=== PATIENT | female | born 1960 | race Caucasian/White ===

== ENCOUNTER 2020-08-11 12:17 | Outpatient (REF) | payer OTHER, SELFPAY | END 2020-08-11 12:18 | disposition home or self-care (01) | LOC: HO.HMGCLDS 12:17 | PROVIDERS: Visit Provider Internal Medicine | DX: Z20.828 Contact with and (suspected) exposure to other viral communicable diseases (principal) | CPT/HCPCS: C9803; U0003 ==

== ENCOUNTER 2021-09-03 11:21 | Outpatient (REF) | payer OTHER, SELFPAY ==
--- NOTE | ~2021-09-03 | XR_ITS ---
EXAMINATION: XR SHOULDER, LEFT CLINICAL INFORMATION: Pain. COMPARISON: None TECHNIQUE: AP external rotation, Grashey, scapular Y, and axillary views of the left shoulder. FINDINGS: The bones and soft tissues are normal. No fracture. Glenohumeral and acromioclavicular alignment is anatomic with normal joint space. No abnormal soft tissue calcifications. XR/XR shoulder LT min 2V IMPRESSION: Unremarkable left shoulder.
== END 2021-09-03 11:22 | disposition home or self-care (01) ==
LOC: HO.HMGCX 11:21
PROVIDERS: PCP Internal Medicine; Visit Provider Internal Medicine
DX: M25.512 Pain in left shoulder (principal)
CPT/HCPCS: 73030

== ENCOUNTER 2021-09-05 09:47 | Outpatient (REF) | payer OTHER, SELFPAY ==
[2021-09-05 11:36] LABS: Appearance Urine CLEAR; Color Urine YELLOW; Glucose Urine UA NEG (NEG); Leukocyte Esterase Urine TRACE (NEG); Nitrite Urine NEG (NEG); PH 5.5 (5.0-8.0); Specific Gravity - Urine >= 1.030 (1.005-1.025); Urine Blood NEG (NEG); Urine Ketones NEG (NEG); Urine Protein NEG (NEG-TRACE)
[2021-09-05 11:43] LABS: Hematocrit 41.2 % (37.0-47.0); Hemoglobin 13.7 g/dl (12.0-16.0); Mean Corpuscular HGB Conc 33.3 g/dl (31.0-35.0); Mean Corpuscular Hemoglobin 30.6 pg (27.0-33.0); Mean Corpuscular Volume 92.2 fL (80.0-98.0); Mean Platelet Volume 10.3 fL (9.4-12.3); Platelet Count 287 X10*3/uL (160-400); Red Blood Count 4.47 X10*6/uL (4.20-5.50); Red Cell Distribution Width 12.9 % (11.0-16.0); White Blood Count 5.6 X10*3/uL (4.8-10.8)
[2021-09-05 11:53] LABS: B Type Natriuretic Peptide 11 pg/mL (<100)
[2021-09-05 12:12] LABS: Alanine Aminotransferase 27 U/L (0-31); Albumin Level 4.2 g/dL (3.5-5.0); Alkaline Phosphatase 47 U/L (39-117); Anion Gap 11 (12-20); Aspartate Amino Transferase 26 U/L (5-31); Bilirubin Total 0.6 mg/dL (0.0-1.0); Blood Urea Nitrogen 18 mg/dL (9-16); Calcium 9.6 mg/dL (8.4-10.2); Carbon Dioxide 25 mmol/L (22-29); Chloride 109 mmol/L (96-108); Cholesterol 254 mg/dL; Estimated Glomerular Filt Rate > 60; Glucose Fasting 101 mg/dL (60-99); HDL Cholesterol 63 mg/dL; LDL Cholesterol Calculated 161 mg/dl; Potassium 4.7 mmol/L (3.3-5.1); Sodium 140 mmol/L (135-145); Total Protein 6.8 g/dL (6.5-8.0); Triglycerides 153 mg/dL
[2021-09-05 12:20] LABS: Squamous Epithelial Cell Urine 1+ /LPF
[2021-09-05 12:22] LABS: RBC Urine 0-2 /HPF (0)
== END 2021-09-05 09:48 | disposition home or self-care (01) ==
LOC: HO.HMGCLDS 09:47
PROVIDERS: PCP Internal Medicine; Visit Provider Internal Medicine
DX: Z00.00 Encounter for general adult medical examination without abnormal findings (principal)
CPT/HCPCS: 36415; 80053; 80061; 81001; 83880; 84443; 85027

== ENCOUNTER 2021-09-28 09:00 | Outpatient (RCR) | payer OTHER, SELFPAY ==
--- NOTE | 2021-09-20 10:48 | MHC.PT.EP ---
[facility] [place] Office [place] Office [place] Office [address] [phone] F: [phone] F: [phone] F: [phone] F: [phone] Physical Therapy Plan of Care Date of Evaluation: Date of Surgery: n/a Diagnosis: pain in L shoulder Assessment: Patient is a 61 year old R handed female who presents with s/s consistent with L shoulder pain. She works with daily job demands including office work. Patient past medical history is fairly unremarkable. Current impairments include pain, posture, ROM, strength, activity tolerance and functional mobility. Functional limitations include decreased ability to sleep, lift, carry, push, pull, and swing a golf club. She is going to [place] in 2 weeks. We will establish an optimal HEP by then. Patient is motivated with good rehab potential. Skilled PT will address impairments and functional limitations in order to achieve goals. Frequency and Duration: The patient will be seen 2x/week for 2 weeks Short Term Goals: I with HEP AROM flexion and abd 120 pain free - 2 weeks Initiated band strength with no aggravation of s/s. - 2 weeks Riding Double Goals: Treatment Plan: Modalities to reduce pain, spasms and effusion. Manual therapy to restore motion and function. Therapeutic exercise to improve strength and flexibility. Neuromuscular re-education for posture and balance. Therapeutic activities to return to functional activities of daily living. Electronically signed by: Asa Montanez, PT Please sign and return to therapist. Thank you for your referral.
--- NOTE | 2021-09-28 09:46 | MHC.PT.DC ---
[facility] [place] Office [place] Office [place] Office [address] Beka Guerra [address] [phone] F: [phone] F: [phone] F: [phone] F: [phone] Physical Therapy Discharge Report Diagnosis: pain in L shoulder Date of Surgery: n/a Date of Evaluation: 09/19/21 Date of Discharge: 09/28/21 Treatments to Date: 3 Cancellations to Date: 0 No Shows to Date: 0 Discharge Status: Improved Function Independent with HEP Discharge Summary: She is appropriate for d/c secondary to I with HEP and improved function. She is moving to [place] and will continue with HEP there. Electronically signed by: Lizzette Woodson PT Please sign and return to therapist. Thank you for your referral.
== END 2021-09-28 09:46 | disposition home or self-care (01) ==
LOC: HO.PTCHIC 09:00
PROVIDERS: PCP Internal Medicine; Visit Provider Internal Medicine
DX: M25.512 Pain in left shoulder (principal)
CPT/HCPCS: 97110; 97140; 97161

== ENCOUNTER → 2021-12-14 09:31 | Outpatient (BNVA) | payer OTHER, SELFPAY | PROVIDERS: PCP Internal Medicine; Referring Provider Internal Medicine; Visit Provider Internal Medicine Cardiovascular Disease | DX: R06.02 Shortness of breath (principal); Z86.79 Personal history of other diseases of the circulatory system | CPT/HCPCS: 99202 ==

== ENCOUNTER → 2021-12-17 09:35 | Outpatient (REF) | payer OTHER, SELFPAY ==
--- NOTE | 2021-12-17 11:38 | CA_ITS ---
Acquisition Time: 2021-12-17 10:14:21 Total Exercise Time: 00:09:47 Test Indications: SOB Medications: SEE CHART Protocol: MAGGIE Max HR: 157 BPM 98% of Pred: 160 BPM Max BP: 148/082 mmHG Max Work Load: 11.3 METS Exercise stress test with exercise 9 min 47 sec of Magige protocol, achieving 98% MPHR, 11 METs, with mild sob, no chest discomfort, without arrythmia, with normotensive response to exercise, without EKG changes meeting criteria for ischemia. Test reviewed with Dr Foster. Referred By: Corey Reilly Overread By: ZANE MOSCOSO
== END ==
LOC: HO.CARD 09:35
PROVIDERS: PCP Internal Medicine; Visit Provider Internal Medicine Cardiovascular Disease
DX: R06.02 Shortness of breath (principal)
CPT/HCPCS: 93017

== ENCOUNTER → 2021-12-26 11:36 | Outpatient (REF) | payer OTHER, SELFPAY ==
--- NOTE | 2021-12-26 11:41 | CA_ITS ---
Transthoracic Echocardiogram Patient (Last, First, Middle): Stephenie King G Gender: Female Date of : 1960 Age: 61 Procedure Date: 12/26/2021 Procedure Type: Transthoracic Echocardiogram Location: OP Height: 162.56 cm Weight: 63.5 kg BSA: 1.68 m2 Heart Rate: bpm BP: 110 / 70 mmHg Rn Gyn: MERCEDES Gaston MD: Corey Reilly MD Mineral Engineer: Corey Reilly MD Symptoms: R06.02 - Shortness of breath Study Quality: Fair ECG Rhythm: Sinus Conclusions: - 1. Normal LV systolic function with grade 1 diastolic dysfunction 2. Normal cardiac valvular Doppler 3. Normal RV systolic pressure 4. No gross pericardial effusion Findings Left Ventricle Normal left ventricular size, thickness, and systolic function. The visually estimated ejection fraction is between 55-60%. Spectral Doppler is indicative of an impaired relaxation filling pattern. E/E prime ratio is <8, consistent with normal filling pressures. Evidence suggests grade I (mild) diastolic dysfunction. Right Ventricle Normal right ventricular cavity size and systolic function. Atria The left atrium is normal in size. There is no evidence of interatrial shunt. The right atrium is normal in size. Aortic Valve There is mild calcification of the aortic valve. There is no aortic valve stenosis. There is no aortic valve regurgitation. Mitral Valve There is mild anterior and posterior mitral leaflet thickening. There is trace mitral valve regurgitation. There is no mitral valve stenosis. Pulmonic Valve The pulmonic valve was not well visualized. Tricuspid Valve Likely normal tricuspid valve structure and function. There is trace tricuspid valve regurgitation. The right ventricular systolic pressure is normal. The right ventricular systolic pressure is 18 mmHg. There is no evidence of pulmonary hypertension. Great Vessels All visible segments of the aorta are normal in size. The pulmonary artery was not well visualized. Venous The inferior vena cava is normal in size and collapses greater than 50% with inspiration. Pericardium/Pleural There is no evidence of pericardial effusion. Prior Study Comparison No prior study available for comparison. Measurements 2D Linear Measurements IVSd: 0.78 0.6-0.9/0.6-1.0 cm LVIDd: 4.55 3.9-5.3/4.2-5.9 cm LVIDd Index: 2.71 2.4-3.2/2.2-3.1 cm/m2 LVIDs: 3.34 2.0-3.6 cm LVPWd: 0.77 0.7-1.1 cm LA Diam: 3.20 2.7-3.8/3.0-4.0 cm LAIDs Index: 1.90 1.5-2.3 cm/m2 LV Mass: 138.56 67-162/88-224 g LV Mass Index: 82.48 43-95/49-115 g/m2 LVOT Diam: 2.00 3.0+(-)1.3 cm 2D Systolic Function EF 4C: 56.20 >55% EF 2C: 59.20 >55% EF BiP: 56.40 >55% Mitral Valve MV Pk E: 0.89 MV PK A: 0.88 MV Decel Time: 159.00 E/A: 1.00 E'Lateral: 8.59 E'Medial: 7.07 E/E' Med: 12.60 E/E' Lat: 10.40 PHT: 47.00 MVA PHT: 4.68 Decel [place]: 5.59 Aortic Valve AoV Pk Ethan: 1.52 AoV Mn Ethan: 1.08 AoV VTI: 0.34 AoV Pk Grad: 9.00 Aov Mn Grad: 5.00 GENARO Cont.VTI: 2.15 LVOT LVOT Pk Ethan: 0.93 LVOT Mn Ethan: 0.69 LVOT VTI: 0.23 LVOT Pk Grad: 3.00 LVOT Mn Grad: 2.00 LVOT Diam: 2.00 LVOT Area: 3.14 Diastolic Function MV Pk E: 0.89 MV Pk A: 0.88 E/A: 1.00 E'Medial: 7.07 E/E' Med: 12.60 E' Laterial: 8.59 E/E' Lat: 10.40 Right Ventricle TAPSE (mm): 21.90 TVS' Ethan: 10.00 Tricuspid Valve TR Pk Ethan: 1.96 TR Pk Grad: 15.00 RA Press: 3.00 RVSP: 18.00 Great Vessels Aorta Sinus of Valsalva: 2.85 2.0-3.[address] [place]: 2.52 1.7-3.4 cm Ao Asc: 2.90 2.1-3.4 cm Ao Arch: 2.80 Updated in Other Vendor System with Status of Final Corey Reilly MD electronically signed on 12/27/2021 12:16:49 PM with status of Final
== END ==
LOC: HO.CARD 11:36
PROVIDERS: PCP Internal Medicine; Visit Provider Internal Medicine Cardiovascular Disease
DX: R06.02 Shortness of breath (principal); Z86.79 Personal history of other diseases of the circulatory system
CPT/HCPCS: 93306

== ENCOUNTER 2022-09-05 09:20 | Outpatient (REF) | payer OTHER, SELFPAY ==
[2022-09-05 11:26] LABS: MANUAL DIFF FLAG NO
[2022-09-05 11:45] LABS: Basophils Absolute Auto 0.1 X10*3/uL (0.0-0.2); Basophils Percent Auto 0.7 % (0-2); Eosinophils Absolute Auto 0.3 X10*3/uL (0.0-0.4); Eosinophils Percent Auto 3.5 % (0-4); Hematocrit 41.9 % (37.0-47.0); Hemoglobin 13.9 g/dl (12.0-16.0); Imm Gran Abs Auto 0.03 X10*3/uL (0.00-0.03); Imm Gran Pct Auto 0.4 % (0.0-0.4); Lymphocytes Percent Auto 27.4 % (20-40); Mean Corpuscular HGB Conc 33.2 g/dl (31.0-35.0); Mean Corpuscular Hemoglobin 30.5 pg (27.0-33.0); Mean Corpuscular Volume 92.1 fL (80.0-98.0); Mean Platelet Volume 10.1 fL (9.4-12.3); Monocytes Absolute Auto 0.5 X10*3/uL (0.1-1.2); Monocytes Percent Auto 6.4 % (2-11); Neutrophils Absolute Auto 4.5 x10*3/uL (2.0-8.3); Neutrophils Percent Auto 61.6 % (45-73); Platelet Count 313 X10*3/uL (160-400); Red Blood Count 4.55 X10*6/uL (4.20-5.50); Red Cell Distribution Width 12.5 % (11.0-16.0); White Blood Count 7.2 X10*3/uL (4.8-10.8)
[2022-09-05 14:13] LABS: TSH reflex Free T4 1.28 uIU/mL (0.32-4.0); Vitamin D 25-OH Total 31.3 ng/mL (>30)
[2022-09-05 14:56] LABS: Alanine Aminotransferase 18 U/L (0-31); Albumin Level 4.2 g/dL (3.5-5.0); Alkaline Phosphatase 56 U/L (39-117); Anion Gap 12 (12-20); Aspartate Amino Transferase 21 U/L (5-31); Bilirubin Total 0.6 mg/dL (0.0-1.0); Blood Urea Nitrogen 21 mg/dL (9-16); Calcium 9.1 mg/dL (8.4-10.2); Carbon Dioxide 25 mmol/L (22-29); Chloride 107 mmol/L (96-108); Cholesterol 240 mg/dL; Estimated Glomerular Filt Rate > 60; Glucose Fasting 89 mg/dL (60-99); HDL Cholesterol 72 mg/dL; LDL Cholesterol Calculated 151 mg/dl; Potassium 4.9 mmol/L (3.3-5.1); Sodium 139 mmol/L (135-145); Total Protein 6.5 g/dL (6.5-8.0); Triglycerides 88 mg/dL
== END 2022-09-05 09:21 | disposition home or self-care (01) ==
LOC: HO.HMGCLDS 09:20
PROVIDERS: PCP Internal Medicine; Visit Provider Internal Medicine
DX: Z00.00 Encounter for general adult medical examination without abnormal findings (principal)
CPT/HCPCS: 36415; 80053; 80061; 82306; 84443; 85025